=== PATIENT | male | born 1945 | race African-American/Black ===

== ENCOUNTER 2017-04-01 01:35 | Inpatient (IN) | payer OTHER, MEDICARE ==
[2017-04-01] MEDS ORDERED: ZOFRAN IV ONE (02:40)
[2017-04-01] MEDS ORDERED: SUBLIMAZE IV ONE (02:40)
[2017-04-01] MEDS ORDERED: NACL 0.9% 500 ML 500 ML IV ONE (02:42)
--- NOTE | 2017-04-01 02:42 | Emergency Department Report ---
ED General Adult HPI - General Chief complaint: Dizziness Stated complaint: SYNCOPE Time Seen by Provider: 04/01/17 02:27 Source: patient, family, EMS (ems notes not available at time of chart dictation), RN notes reviewed, old records reviewed Mode of arrival: Stretcher Limitations: Language Barrier - History of Present Illness Initial comments: This is a 71-year-old male who is previously known to this provider, patient lives in [place], and typically splits his medical care [facility] in [place], and [facility]. Patient declined a electric solderer formally, and requested that his family translate for him. 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 Also has a history of hypertension. Abdominal surgery was a laparoscopic diagnostic try segmentectomy, hepatectomy, hepaticojejunostomy, portal lymph node dissection, this was done in August. Patient also on chemotherapy, he does not know what agents he is taking, and his family does not know what agents he is taking as well. Presents to the ER with EMS after complaint of syncope. Family reports that patient has been in town since Wednesday, has been weak, having nausea and vomiting , and not defecating. Patient also complaining of left-sided flank pain and abdominal pain. The pain is achy and sharp, increases with palpation, decreases with rest. The patient denies chest pain. The patient complains of shortness of breath. The shortness of breath has been present for the past 4 hours. Patient denies hematemesis, bright red blood per rectum, extremity weakness, numbness. Patient reports "passing out" a few times as per his family's report. -: Gradual Location: abdomen Quality: aching Consistency: intermittent Improves with: rest Worsens with: movement Associated Symptoms: loss of appetite, malaise, nausea/vomiting, shortness of breath, syncope, weakness. denies: confusion, chest pain, cough, diaphoresis, fever/chills - Related Data Previous Rx's Medication Instructions Recorded Last Taken Type oxyCODONE /ACETAMINOPHEN [Percocet 1 tab PO Q4HR #14 tab 04/02/17 Unknown Rx 5/325] Allergies Allergy/AdvReac Type Severity Reaction Status Date / Time No Known Allergies Allergy Verified 04/01/17 05:39 ED Review of Systems ROS: Stated complaint: SYNCOPE Other details as noted in HPI Constitutional: malaise, weakness. denies: fever ENT: denies: epistaxis Respiratory: shortness of breath Cardiovascular: syncope Gastrointestinal: abdominal pain Genitourinary: as per HPI Musculoskeletal: back pain Neurological: weakness Psychiatric: as per HPI ED Past Medical Hx - Past Medical History Previous Medical History?: Yes Hx of Cancer: Yes (Liver) - Surgical History Past Surgical History?: Yes Additional Surgical History: tumor removed 08/2016 - Social History Smoking Status: Never Smoker Substance Use Type: None - Medications Home Medications: Home Medications Medication Instructions Recorded Confirmed Last Taken Type oxyCODONE /ACETAMINOPHEN [Percocet 1 tab PO Q4HR #14 tab 04/02/17 Unknown Rx ] ED Physical Exam - General Limitations: Language Barrier General appearance: alert, in no apparent distress - Head Head exam: Present: atraumatic, normocephalic - Eye Eye exam: Present: normal appearance, PERRL, EOMI, other. Absent: nystagmus - ENT ENT exam: Present: normal exam (visual acuity intact to finger counting, color perception, reading at a close distance), normal orophraynx, mucous membranes moist, normal external ear exam - Neck Neck exam: Present: normal inspection - Respiratory Respiratory exam: Present: normal lung sounds bilaterally. Absent: respiratory distress, wheezes, rales, rhonchi, stridor, prolonged expiratory - Cardiovascular Cardiovascular Exam: Present: regular rate, normal rhythm, normal heart sounds. Absent: systolic murmur, diastolic murmur, rubs, gallop - GI/Abdominal GI/Abdominal exam: Present: soft, tenderness, normal bowel sounds. Absent: distended, guarding, rebound, rigid, pulsatile mass - Rectal Rectal exam: Present: deferred - Extremities Exam Extremities exam: Present: normal inspection, full ROM, normal capillary refill. Absent: pedal edema, joint swelling, calf tenderness - Back Exam Back exam: Present: normal inspection, full ROM. Absent: tenderness, CVA tenderness (R), paraspinal tenderness, vertebral tenderness - Neurological Exam Neurological exam: Present: alert, CN II-XII intact, other (Extraocular movements intact. Tongue midline. No facial droop. Facial sensation intact to light touch in the V1, V2, V3 distribution bilaterally. 5 and 5 strength in 4 extremities.. Sensation is intact to light touch in 4 extremities.). Absent : motor sensory deficit - Psychiatric Psychiatric exam: Present: normal affect, normal mood - Skin Skin exam: Present: warm, dry, intact, normal color. Absent: rash ED Course Vital Signs 04/01/17 04/01/17 04/01/17 02:20 05:26 06:55 Temperature 97.8 F Pulse Rate 70 Respiratory 16 16 Rate Blood Pressure 101/50 Blood Pressure [Right] O2 Sat by Pulse 99 99 Oximetry 04/01/17 04/01/17 04/01/17 08:30 10:30 11:09 Temperature 98.7 F 99.6 F Pulse Rate 92 H 84 Respiratory 18 16 18 Rate Blood Pressure 99/65 Blood Pressure 102/60 [Right] O2 Sat by Pulse 99 98 Oximetry - Reevaluation(s) Reevaluation #1: 04/01/17 05:[address] scan of the brain negative. CT scan of the chest demonstrates no pulmonary embolus. Pneumonia is suggested. CT scan of the abdomen and pelvis is pending at this time. Blood cultures ordered, ceftriaxone ordered. Case presented to Hospital physician, Dr. Muñiz; she except the patient to the medical service. Reevaluation #2: 04/01/17 06:01 Dr Sandoval to follow up on ct a/p ED Medical Decision Making - Lab Data Result diagrams: 04/01/17 03:08 04/01/17 03:08 Vital Signs 04/01/17 02:20 Temperature 97.8 F Pulse Rate 70 Blood Pressure 101/50 O2 Sat by Pulse 99 Oximetry Lab Results 04/01/17 04/01/17 04/01/17 Range/Units 03:08 03:08 03:08 WBC 12.0 H (4.5-11.0) K/mm3 RBC 4.04 (3.65-5.03) M/mm3 Hgb 9.3 L (11.8-15.2) gm/dl Hct 29.0 L (35.5-45.6) % MCV 72 L (84-94) fl MCH 23 L (28-32) pg MCHC 32 (32-34) % RDW 15.0 (13.2-15.2) % Plt Count 245 (140-440) K/mm3 Lymph % (Auto) 6.0 L (13.4-35.0) % [place] % (Auto) 5.0 (0.0-7.3) % Eos % (Auto) 2.3 (0.0-4.3) % Baso % (Auto) 0.1 (0.0-1.8) % Lymph # 0.7 L (1.2-5.4) K/mm3 [place] # 0.6 (0.0-0.8) K/mm3 Eos # 0.3 (0.0-0.4) K/mm3 Baso # 0.0 (0.0-0.1) K/mm3 Seg Neutrophils % 86.6 H (40.0-70.0) % Seg Neutrophils # 10.4 H (1.8-7.7) K/mm3 PT 15.3 H (12.2-14.9) Sec. INR 1.15 H (0.87-1.13) APTT 30.1 (24.2-36.6) Sec. Sodium 136 L (137-145) mmol/L Potassium 4.4 (3.6-5.0) mmol/L Chloride 98.9 (98-107) mmol/L Carbon Dioxide 25 (22-30) mmol/L Anion Gap 17 mmol/L BUN 16 (9-20) mg/dL Creatinine 0.8 (0.8-1.5) mg/dL Estimated GFR > 60 ml/min BUN/Creatinine Ratio 20 % Glucose 166 H (75-100) mg/dL Lactic Acid (0.7-2.0) mmol/L Calcium 8.0 L (8.4-10.2) mg/dL Total Bilirubin 0.50 (0.1-1.2) mg/dL AST 26 (5-40) units/L ALT 14 (7-56) units/L Alkaline Phosphatase 73 (35-129) units/L Ammonia (25-60) umol/L Troponin T < 0.010 (0.00-0.029) ng/mL Total Protein 6.1 L (6.3-8.2) g/dL Albumin 3.1 L (3.9-5) g/dL Albumin/Globulin Ratio 1.0 % Lipase (13-60) units/L 12/28/17 12/28/17 12/28/17 Range/Units 03:08 03:08 03:08 WBC (4.5-11.0) K/mm3 RBC (3.65-5.03) M/mm3 Hgb (11.8-15.2) gm/dl Hct (35.5-45.6) % MCV (84-94) fl MCH (28-32) pg MCHC (32-34) % RDW (13.2-15.2) % Plt Count (140-440) K/mm3 Lymph % (Auto) (13.4-35.0) % [place] % (Auto) (0.0-7.3) % Eos % (Auto) (0.0-4.3) % Baso % (Auto) (0.0-1.8) % Lymph # (1.2-5.4) K/mm3 [place] # (0.0-0.8) K/mm3 Eos # (0.0-0.4) K/mm3 Baso # (0.0-0.1) K/mm3 Seg Neutrophils % (40.0-70.0) % Seg Neutrophils # (1.8-7.7) K/mm3 PT (12.2-14.9) Sec. INR (0.87-1.13) APTT (24.2-36.6) Sec. Sodium (137-145) mmol/L Potassium (3.6-5.0) mmol/L Chloride (98-107) mmol/L Carbon Dioxide (22-30) mmol/L Anion Gap mmol/L BUN (9-20) mg/dL Creatinine (0.8-1.5) mg/dL Estimated GFR ml/min BUN/Creatinine Ratio % Glucose (75-100) mg/dL Lactic Acid 2.80 H* (0.7-2.0) mmol/L Calcium (8.4-10.2) mg/dL Total Bilirubin (0.1-1.2) mg/dL AST (5-40) units/L ALT (7-56) units/L Alkaline Phosphatase (35-129) units/L Ammonia 25.0 (25-60) umol/L Troponin T (0.00-0.029) ng/mL Total Protein (6.3-8.2) g/dL Albumin (3.9-5) g/dL Albumin/Globulin Ratio % Lipase 11 L (13-60) units/L - EKG Data -: EKG Interpreted by Me EKG shows normal: sinus rhythm Rate: normal - EKG Data When compared to previous EKG there are: previous EKG unavailable 04/01/17 04:25 Normal sinus, 77 bpm, normal axis, normal intervals, not morphologically consistent with ST elevation myocardial infarction - Radiology Data Radiology results: pending, report reviewed, image reviewed CT scan of the brain: Negative for acute disease, interpreted by radiology - Medical Decision Making Differential diagnosis, including but not limited to: Vagal event, orthostasis, dehydration, bowel obstruction, pulmonary embolus, intracranial hemorrhage, worsening metastatic disease, constipation, enteritis, urinary tract infection Assessment and plan: 71-year-old male visiting from out of town, history of biliary malignancy, with extensive and complex surgical intervention performed earlier on this year, with a complaint of weakness, left-sided abdominal pain, nausea or vomiting, not defecating, syncope multiple times, and shortness of breath. Patient is afebrile with reassuring vital signs. His neurologic examination is nonfocal. During my initial assessment he appears quite comfortable with the exception of minimal left-sided abdominal tenderness. He follows commands, and there is no midline cervical spine tenderness. CT scan of the brain is obtained, along with CT scan of the chest, abdomen, pelvis. Some of his medical records have been reviewed by myself. We will await interpretation of his CT scan findings. Critical care attestation.: If time is entered above; I have spent that time in minutes in the direct care of this critically ill patient, excluding procedure time. ED Disposition Clinical Impression: Syncope, Hx of malignant neoplasm of bile duct Disposition: OP ADMIT IP TO THIS HOSP Is pt being admited?: Yes Condition: Good
[2017-04-01 03:23] LABS: Basophils % (Auto) 0.1 % (0.0-1.8); Eosinophils # (Auto) 0.3 K/mm3 (0.0-0.4); Eosinophils % (Auto) 2.3 % (0.0-4.3); Hemoglobin 9.3 gm/dl (11.8-15.2); Lymphocytes # (Auto) 0.7 K/mm3 (1.2-5.4); Mean Corpuscular HGB Conc 32 % (32-34); Mean Corpuscular Volume 72 fl (84-94); Monocytes # (Auto) 0.6 K/mm3 (0.0-0.8); Platelet Count 245 K/mm3 (140-440); Red Blood Count 4.04 M/mm3 (3.65-5.03)
[2017-04-01 03:31] LABS: Mean Corpuscular Hemoglobin 23 pg (28-32)
[2017-04-01 03:33] LABS: INR 1.15 (0.87-1.13)
[2017-04-01 03:34] LABS: Partial Thromboplastin Time 30.1 Sec. (24.2-36.6)
[2017-04-01 03:46] LABS: Alanine Aminotransferase 14 units/L (7-56); Albumin 3.1 g/dL (3.9-5); BUN/Creatinine Ratio 20; Blood Urea Nitrogen 16 mg/dL (9-20); Hemolysis Index 3
--- NOTE | 2017-04-01 04:48 | Cat Scan Report ---
FINAL REPORT EXAM: CT HEAD/BRAIN W/O CON HISTORY: History of liver cancer. Syncope and weakness. TECHNIQUE: Unenhanced axial CT images of the brain were obtained. No prior studies are available for comparison. FINDINGS: There is mild diffuse generalized volume loss, appropriate for patient's age. Incidental note is made of a small cavum septum pellucidum (developmental variant). There are mild patchy areas of low-attenuation in the periventricular and subcortical white matter, nonspecific but most likely mild chronic small vessel ischemic disease. The gramajo-white differentiation is maintained. There is no extra-axial fluid collection, mass, mass effect, midline shift, hydrocephalus, or acute intracranial hemorrhage. The visualized paranasal sinuses and mastoid air cells are clear. There is no skull fracture or other osseous abnormality. The visualized orbits and globes are grossly unremarkable. Note that MRI or CT with and without contrast is superior for the evaluation of metastatic disease, and may be warranted for further evaluation. IMPRESSION: 1. No acute intracranial abnormality. 2. Probable mild chronic small vessel ischemic disease.
[2017-04-01] MEDS ORDERED: SUBLIMAZE ONE (05:13)
[2017-04-01] MEDS ORDERED: NACL 0.9% 500 ML 500 ML ONE (05:14)
[2017-04-01] MEDS ORDERED: ZOFRAN ONE (05:16)
--- NOTE | 2017-04-01 05:46 | Cat Scan Report ---
FINAL REPORT EXAM: CT ANGIO CHEST HISTORY: History of liver cancer, with syncope and weakness. Pain when taking in a breath. TECHNIQUE: CT angiogram of the chest was performed, with axial images obtained after the intravenous administration of contrast. Sagittal and coronal reformatted and [address]-MIP reformatted images were also obtained. No prior studies are available for comparison. FINDINGS: The heart is normal in size. The thoracic aorta is normal in caliber, without aneurysm or dissection. No filling defect is seen in the central or proximal segmental pulmonary arteries to suggest pulmonary embolus. There is no pathologic mediastinal or hilar lymphadenopathy. Examination of the lung parenchyma demonstrates minimal biapical pleural scarring. A 1.2 cm rounded subpleural soft tissue nodule at the medial right upper lobe, which abuts the lower right tracheal wall, and appears to contain central 3-4 mm focus of calcification versus enhancement. The presence of calcification would indicate pulmonary granuloma or calcified lymph node. There are multiple small peribronchovascular patchy nodular densities scattered throughout the posterior and lateral right lower lobe. These are nonspecific but most likely inflammatory or infectious small airways disease. There are mild dependent changes at the posterior left lower lobe. There is platelike scarring or atelectasis in the lingula. There is no pleural or pericardial effusion. The trachea and visualized proximal airways are patent. The patient is status post right hepatectomy. There is mild diffuse pneumobilia in the left hepatic lobe. There is partial visualization of several cysts in the right renal upper pole. There is moderate fluid seen within the gastric lumen, with globular dependent soft tissue/debris posteriorly. Mild spondylotic changes are seen in the spine. IMPRESSION: 1. No pulmonary embolism seen in the central or proximal segmental pulmonary arteries. 2. Multiple small peribronchovascular patchy nodular densities throughout the right lower lobe, nonspecific but most likely inflammatory or infectious small airways disease. 3. 1.2 cm rounded subpleural soft tissue nodule in the medial right upper lobe, with 3-4 mm central calcification versus enhancement. Given these multiple pulmonary findings, follow-up unenhanced CT in 2-3 months is recommended for further evaluation. 4. Status post right hepatectomy. Mild diffuse pneumobilia in the remnant left hepatic lobe.
[2017-04-01] MEDS ORDERED: ROCEPHIN/NS 1 GM/50 ML 1 GM/50 ML BAG IV ONE (05:49)
[2017-04-01] MEDS ORDERED: cefTRIAXone 1 GM in NACL 0.9% 20 ML IV ONE (06:00)
[2017-04-01 06:14] LABS: Bilirubin,Urine NEG (Negative); Blood,Urine NEG (Negative); Color,Urine Yellow (Yellow); Mucus,Urine FEW /HPF; Nitrite,Urine NEG (Negative); Protein,Urine <15 mg/dL mg/dL (Negative); Urobilinogen,Urine < 2.0 mg/dL (<2.0)
--- NOTE | 2017-04-01 06:26 | Cat Scan Report ---
FINAL REPORT EXAM: CT ABDOMEN PELVIS W CONTRAST. HISTORY: Liver cancer, with syncope and weakness. Abdominal pain, patient status post chemo 2 wks ago. Hurts lower lungs to take a breath. TECHNIQUE: Axial CT images of the abdomen and pelvis were obtained, following the administration of intravenous contrast. Delayed axial images and coronal and sagittal reformatted images were also obtained. No prior studies are available for comparison. FINDINGS: The patient is status post partial right hepatectomy, with multiple surgical clips and sutures along the remnant right lateral margin. There is spiculated soft tissue adjacent to the surgical sutures, which may represent postsurgical change, though residual or recurrent tumor is not excluded. Comparison with prior examinations is recommended. There is mild pneumobilia in the remnant liver. The patient is status post cholecystectomy. The pancreas, spleen, and adrenal glands are unremarkable. A 3.4 cm cyst is seen at the left lower renal pole, with thin internal septations. Additional bilateral renal cysts are noted. There is no urinary tract obstruction. Evaluation of the bowel is limited due to lack of oral contrast. The stomach is moderately fluid-filled, with globular dependent soft tissue, likely debris. There is moderate abnormal wall thickening involving the gastric pylorus and duodenum, in keeping with moderate duodenitis. A 2.0 cm pocket of air is seen along the right lateral aspect of the duodenal wall, seen on both initial and delayed images, which raises possibility of underlying ulcer. Upper endoscopy is suggested for further evaluation. There are surgical sutures in right anterior abdominal small bowel loops, in keeping with enteric-enteric anastomosis. Correlation with surgical history is recommended. There is no intestinal obstruction or free air. There is mild residual stool in the colon. Of note, the appendix is normal. The abdominal aorta is normal in caliber, mildly calcified. There is no pathologic abdominal or pelvic lymphadenopathy. A small pocket of fluid is seen adjacent to the tail of the pancreas, probably ascitic fluid. There is additional mild pelvic ascites. The prostate gland is normal in size, and heterogeneous appearance with 1.3 cm rounded slightly enhancing nodule at its right paramedian anterior aspect. The urinary bladder is unremarkable. [id number] spondylotic changes are seen in the spine. Note that dedicated CT exam of the chest was also performed, and please refer to that separate report for additional details. IMPRESSION: 1. Status post partial right hepatectomy. Nonspecific spiculated soft tissue adjacent to the surgical sutures along the remnant right hepatic margin, which may represent postsurgical changes, though underlying residual or recurrent tumor is not excluded. Direct comparison with prior examinations is recommended to determine stability. 2. Mild pneumobilia in the remnant liver. 3. Moderate abnormal wall thickening of the gastric pylorus and duodenum, indicative of moderate duodenitis. Persistent 2.0 cm pocket of air seen along the right lateral aspect of the duodenal wall, which may represent underlying ulcer. Upper endoscopy is suggested for further evaluation. 4. Small pocket of fluid adjacent to the tail of the pancreas, likely ascitic fluid. Additional mild pelvic ascites. 5. Bilateral renal cysts, including minimally complex 3.4 cm cyst in the left lower renal pole, with thin internal septations. Continued imaging surveillance is recommended. 6. No intestinal obstruction or free air. 7. Heterogeneous prostate gland, with nonspecific 1.3 cm rounded enhancing nodule in its right paramedian anterior aspect.
[2017-04-01] MEDS ORDERED: DULCOLAX PR PRN (08:01)
[2017-04-01] MEDS ORDERED: MILK OF MAGNESIA PO PRN (08:01)
[2017-04-01] MEDS ORDERED: TYLENOL PO PRN (08:01)
[2017-04-01] MEDS ORDERED: ZOFRAN IV PRN (08:01)
[2017-04-01] MEDS: MORPHINE IV PRN ×3 (08:30→20:55)
[2017-04-01] MEDS: ZITHROMAX 500 MG in NACL 0.9% 250ML 250 ML IV SCH (09:27)
[2017-04-01] MEDS: NACL 0.9% 1000 ML 1,000 ML IV SCH (09:27)
[2017-04-01] MEDS ORDERED: ROCEPHIN/NS 2 GM/100 ML 2 GM/100 ML BAG IV SCH (10:00)
[2017-04-01] MEDS: LOVENOX SUB-Q SCH (10:12)
--- NOTE | 2017-04-01 15:58 | History and Physical Report ---
<EDVIN MORRIS - Last Filed: 04/01/17 15:54> History of Present Illness Date of examination: 04/01/17 Date of admission: 04/01/17 08:01 Chief complaint: Dizziness History of present illness: This is a 71-year-old male who is previously known to this provider, patient lives in [place], and typically splits his medical care [facility] in [place], and [facility]. 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 Also has a history of hypertension. Abdominal surgery was a laparoscopic diagnostic try segmentectomy, hepatectomy, hepaticojejunostomy, portal lymph node dissection, this was done in August. Patient also on chemotherapy, he does not know what agents he is taking, and his family does not know what agents he is taking as well. Presents to the ER with EMS after complaint of syncope. Family reports that patient has been in town since Wednesday, has been weak, having nausea and vomiting , and not defecating. Patient also complaining of left-sided flank pain and abdominal pain. The pain is achy and sharp, increases with palpation, decreases with rest. The patient denies chest pain. The patient complains of shortness of breath. The shortness of breath has been present for the past 4 hours. Patient denies hematemesis, bright red blood per rectum, extremity weakness, numbness. Past History Past Medical History: cancer (liver) Past Surgical History: Other (hepatectomy with tumor removed) Social history: smoking (never) Medications and Allergies Allergies Allergy/AdvReac Type Severity Reaction Status Date / Time No Known Allergies Allergy Verified 04/01/17 05:39 Home Medications Medication Instructions Recorded Confirmed Last Taken Type oxyCODONE /ACETAMINOPHEN [Percocet 1 tab PO Q4HR #14 tab 04/02/17 Unknown Rx 5/325] Active Meds: Active Medications Acetaminophen (Tylenol) 650 mg PO Q4H PRN PRN Reason: Pain MILD(1-3)/Fever >100.5/FOLEY Bisacodyl (Dulcolax) 10 mg SD QDAY PRN PRN Reason: Constipation unrelieved by MOM Enoxaparin Sodium (Lovenox) 40 mg SUB-Q QDAY DAYSI Last Admin: 04/01/17 10:12 Dose: Not Given Sodium Chloride (Nacl 0.9% 1000 Ml) 1,000 mls @ 75 mls/hr IV DIRECT DAYSI Last Admin: 04/01/17 09:27 Dose: 75 mls/hr Azithromycin 500 mg/ Sodium (Chloride) 250 mls @ 250 mls/hr IV Q24HR [facility] Last Admin: 04/01/17 09:27 Dose: 250 mls/hr Ceftriaxone Sodium 2 gm/ (Sodium Chloride) 20 mls @ 20 mls/10 min IV Q24H [facility] Magnesium Hydroxide (Milk Of Magnesia) 30 ml PO Q4H PRN PRN Reason: Constipation Last Admin: 04/01/17 08:28 Dose: 30 ml Morphine Sulfate (Morphine) 2 mg IV Q4H PRN PRN Reason: Pain, Moderate (4-6) Last Admin: 04/01/17 08:30 Dose: 2 mg Ondansetron HCl (Zofran) 4 mg IV Q8H PRN PRN Reason: N/V unrelieved by Reglan Last Admin: 04/01/17 08:29 Dose: 4 mg Review of Systems Constitutional: weakness, malaise Ears, nose, mouth and throat: no tinnitis, no epistaxis Cardiovascular: shortness of breath Respiratory: other (syncope) Gastrointestinal: abdominal pain Genitourinary Male: no hematuria, no flank pain, no urinary frequency Rectal: no incontinence, no bleeding Musculoskeletal: other (L flank), no neck pain, no arm numbness/tingling, no shooting leg pain Integumentary: no pruritis, no sores, no jaundice Neurological: weakness, syncope, no paralysis, no numbness, no tremors Psychiatric: no memory loss, no sleep disturbances, no suicidal ideation Endocrine: no polyphagia, no polydipsia, no polyuria Hematologic/Lymphatic: no easy bruising, no easy bleeding Allergic/Immunologic: no urticaria, no allergic rhinitis Exam - Constitutional Vitals: Temp Pulse Resp BP Pulse Ox 99.6 F 84 18 99/65 98 04/01/17 11:09 04/01/17 11:09 04/01/17 11:09 04/01/17 11:09 04/01/17 11:09 General appearance: Present: no acute distress, other (Language barrier) - EENT Eyes: Present: PERRL ENT: hearing intact, clear oral mucosa - Neck Neck: Present: supple, normal ROM - Respiratory Respiratory effort: normal Respiratory: bilateral: CTA - Cardiovascular Heart Sounds: Present: S1 & S2. Absent: rub, click - Extremities Extremities: pulses symmetrical Extremity abnormal: edema (trace) Peripheral Pulses: within normal limits - Abdominal General gastrointestinal: Present: tender Localized gastrointestinal: tender: LUQ - Rectal Rectal Exam: deferred - Integumentary Integumentary: Present: clear, warm, dry - Musculoskeletal Musculoskeletal: gait normal, strength equal bilaterally - Psychiatric Psychiatric: appropriate mood/affect, intact judgment & insight - Neurologic Neurologic: CNII-XII intact, moves all extremities - Allied Health Allied health notes reviewed: nursing Results - Labs CBC & Chem 7: 04/01/17 03:08 04/01/17 03:08 Labs: Laboratory Last Values WBC 12.0 K/mm3 (4.5-11.0) H 04/01/17 03:08 RBC 4.04 M/mm3 (3.65-5.03) 04/01/17 03:08 Hgb 9.3 gm/dl (11.8-15.2) L 04/01/17 03:08 Hct 29.0 % (35.5-45.6) L 04/01/17 03:08 MCV 72 fl (84-94) L 04/01/17 03:08 MCH 23 pg (28-32) L 04/01/17 03:08 MCHC 32 % (32-34) 04/01/17 03:08 RDW 15.0 % (13.2-15.2) 04/01/17 03:08 Plt Count 245 K/mm3 (140-440) 04/01/17 03:08 Lymph % (Auto) 6.0 % (13.4-35.0) L 04/01/17 03:08 Glenn % (Auto) 5.0 % (0.0-7.3) 04/01/17 03:08 Eos % (Auto) 2.3 % (0.0-4.3) 04/01/17 03:08 Baso % (Auto) 0.1 % (0.0-1.8) 04/01/17 03:08 Lymph # 0.7 K/mm3 (1.2-5.4) L 04/01/17 03:08 Glenn # 0.6 K/mm3 (0.0-0.8) 04/01/17 03:08 Eos # 0.3 K/mm3 (0.0-0.4) 04/01/17 03:08 Baso # 0.0 K/mm3 (0.0-0.1) 04/01/17 03:08 Seg Neutrophils % 86.6 % (40.0-70.0) H 04/01/17 03:08 Seg Neutrophils # 10.4 K/mm3 (1.8-7.7) H 04/01/17 03:08 PT 15.3 Sec. (12.2-14.9) H 04/01/17 03:08 INR 1.15 (0.87-1.13) H 04/01/17 03:08 APTT 30.1 Sec. (24.2-36.6) 04/01/17 03:08 POC ABG pH 7.425 (7.35-7.45) 04/01/17 11:15 POC ABG pCO2 35.0 (35-45) 04/01/17 11:15 POC ABG pO2 79 (80-105) L 04/01/17 11:15 POC ABG HCO3 22.9 04/01/17 11:15 POC ABG Total CO2 24 04/01/17 11:15 POC ABG O2 Sat 96 04/01/17 11:15 POC ABG Base Excess -1 04/01/17 11:15 FiO2 21 % 04/01/17 11:15 Sodium 136 mmol/L (137-145) L 04/01/17 03:08 Potassium 4.4 mmol/L (3.6-5.0) 04/01/17 03:08 Chloride 98.9 mmol/L (98-107) 04/01/17 03:08 Carbon Dioxide 25 mmol/L (22-30) 04/01/17 03:08 Anion Gap 17 mmol/L 04/01/17 03:08 BUN 16 mg/dL (9-20) 04/01/17 03:08 Creatinine 0.8 mg/dL (0.8-1.5) 04/01/17 03:08 Estimated GFR > 60 ml/min 04/01/17 03:08 BUN/Creatinine Ratio 20 % 04/01/17 03:08 Glucose 166 mg/dL (75-100) H 04/01/17 03:08 Lactic Acid 1.10 mmol/L (0.7-2.0) 04/01/17 09:26 Calcium 8.0 mg/dL (8.4-10.2) L 04/01/17 03:08 Total Bilirubin 0.50 mg/dL (0.1-1.2) 04/01/17 03:08 AST 26 units/L (5-40) 04/01/17 03:08 ALT 14 units/L (7-56) 04/01/17 03:08 Alkaline Phosphatase 73 units/L (35-129) 04/01/17 03:08 Ammonia 25.0 umol/L (25-60) 04/01/17 03:08 Troponin T < 0.010 ng/mL (0.00-0.029) 04/01/17 03:08 Total Protein 6.1 g/dL (6.3-8.2) L 04/01/17 03:08 Albumin 3.1 g/dL (3.9-5) L 04/01/17 03:08 Albumin/Globulin Ratio 1.0 % 04/01/17 03:08 Lipase 11 units/L (13-60) L 04/01/17 03:08 Urine Color Yellow (Yellow) 04/01/17 05:49 Urine Turbidity Clear (Clear) 04/01/17 05:49 Urine pH 6.0 (5.0-7.0) 04/01/17 05:49 Ur Specific [place] 1.054 (1.003-1.030) H 04/01/17 05:49 Urine Protein <15 mg/dl mg/dL (Negative) 04/01/17 05:49 Urine Glucose (UA) Neg mg/dL (Negative) 04/01/17 05:49 Urine Ketones Neg mg/dL (Negative) 04/01/17 05:49 Urine Blood Neg (Negative) 04/01/17 05:49 Urine Nitrite Neg (Negative) 04/01/17 05:49 Urine Bilirubin Neg (Negative) 04/01/17 05:49 Urine Urobilinogen < 2.0 mg/dL (<2.0) 04/01/17 05:49 Ur Leukocyte Esterase Neg (Negative) 04/01/17 05:49 Urine WBC (Auto) 1.0 /HPF (0.0-6.0) 04/01/17 05:49 Urine RBC (Auto) 3.0 /HPF (0.0-6.0) 04/01/17 05:49 U Epithel Cells (Auto) 1.0 /HPF (0-13.0) 04/01/17 05:49 Urine Mucus Few /HPF 04/01/17 05:49 Blood Type B POSITIVE 04/01/17 09:26 Antibody Screen Negative 04/01/17 09:26 Assessment and Plan Advance Directives: Yes VTE prophylaxis?: Chemical - Patient Problems (1) SIRS (systemic inflammatory response syndrome) Status: Acute Plan to address problem: Blood and urine cultures pending, abx started (2) Hx of malignant neoplasm of bile duct Status: Acute Plan to address problem: CT abdomen pending, pt on chemo (3) Syncope Status: Acute Plan to address problem: CDS, ECHO ordered (4) Anemia Status: Acute Plan to address problem: Likely due to chemo, continue to monitor, transfuse if Hgb <7 (5) DVT prophylaxis Status: Acute Plan to address problem: On lovenox <LOUANN MONTGOMERY R - Last Filed: 04/19/17 10:15> History of Present Illness Date of admission: 04/01/17 08:01 History of present illness: I saw and evaluated the patient. I agree with the findings and the plan of care as documented in the Nurse Practitioner's~note, with the following corrections and additions. Exam - Constitutional Vitals: Temp Pulse Resp BP Pulse Ox 98.2 F 77 16 132/64 100 04/02/17 14:51 04/02/17 14:51 04/02/17 14:51 04/02/17 14:51 04/02/17 18:00 Results - Labs CBC & Chem 7: 04/01/17 03:08 04/01/17 03:08 Labs: Laboratory Last Values WBC 12.0 K/mm3 (4.5-11.0) H 04/01/17 03:08 RBC 4.04 M/mm3 (3.65-5.03) 04/01/17 03:08 Hgb 9.3 gm/dl (11.8-15.2) L 04/01/17 03:08 Hct 29.0 % (35.5-45.6) L 04/01/17 03:08 MCV 72 fl (84-94) L 04/01/17 03:08 MCH 23 pg (28-32) L 04/01/17 03:08 MCHC 32 % (32-34) 04/01/17 03:08 RDW 15.0 % (13.2-15.2) 04/01/17 03:08 Plt Count 245 K/mm3 (140-440) 04/01/17 03:08 Lymph % (Auto) 6.0 % (13.4-35.0) L 04/01/17 03:08 Glenn % (Auto) 5.0 % (0.0-7.3) 04/01/17 03:08 Eos % (Auto) 2.3 % (0.0-4.3) 04/01/17 03:08 Baso % (Auto) 0.1 % (0.0-1.8) 04/01/17 03:08 Lymph # 0.7 K/mm3 (1.2-5.4) L 04/01/17 03:08 Glenn # 0.6 K/mm3 (0.0-0.8) 04/01/17 03:08 Eos # 0.3 K/mm3 (0.0-0.4) 04/01/17 03:08 Baso # 0.0 K/mm3 (0.0-0.1) 04/01/17 03:08 Seg Neutrophils % 86.6 % (40.0-70.0) H 04/01/17 03:08 Seg Neutrophils # 10.4 K/mm3 (1.8-7.7) H 04/01/17 03:08 PT 15.3 Sec. (12.2-14.9) H 04/01/17 03:08 INR 1.15 (0.87-1.13) H 04/01/17 03:08 APTT 30.1 Sec. (24.2-36.6) 04/01/17 03:08 POC ABG pH 7.425 (7.35-7.45) 04/01/17 11:15 POC ABG pCO2 35.0 (35-45) 04/01/17 11:15 POC ABG pO2 79 (80-105) L 04/01/17 11:15 POC ABG HCO3 22.9 04/01/17 11:15 POC ABG Total CO2 24 04/01/17 11:15 POC ABG O2 Sat 96 04/01/17 11:15 POC ABG Base Excess -1 04/01/17 11:15 FiO2 21 % 04/01/17 11:15 Sodium 136 mmol/L (137-145) L 04/01/17 03:08 Potassium 4.4 mmol/L (3.6-5.0) 04/01/17 03:08 Chloride 98.9 mmol/L (98-107) 04/01/17 03:08 Carbon Dioxide 25 mmol/L (22-30) 04/01/17 03:08 Anion Gap 17 mmol/L 04/01/17 03:08 BUN 16 mg/dL (9-20) 04/01/17 03:08 Creatinine 0.8 mg/dL (0.8-1.5) 04/01/17 03:08 Estimated GFR > 60 ml/min 04/01/17 03:08 BUN/Creatinine Ratio 20 % 04/01/17 03:08 Glucose 166 mg/dL (75-100) H 04/01/17 03:08 Lactic Acid 1.10 mmol/L (0.7-2.0) 04/01/17 09:26 Calcium 8.0 mg/dL (8.4-10.2) L 04/01/17 03:08 Total Bilirubin 0.50 mg/dL (0.1-1.2) 04/01/17 03:08 AST 26 units/L (5-40) 04/01/17 03:08 ALT 14 units/L (7-56) 04/01/17 03:08 Alkaline Phosphatase 73 units/L (35-129) 04/01/17 03:08 Ammonia 25.0 umol/L (25-60) 04/01/17 03:08 Troponin T < 0.010 ng/mL (0.00-0.029) 04/01/17 03:08 Total Protein 6.1 g/dL (6.3-8.2) L 04/01/17 03:08 Albumin 3.1 g/dL (3.9-5) L 04/01/17 03:08 Albumin/Globulin Ratio 1.0 % 04/01/17 03:08 Lipase 11 units/L (13-60) L 04/01/17 03:08 Urine Color Yellow (Yellow) 04/01/17 05:49 Urine Turbidity Clear (Clear) 04/01/17 05:49 Urine pH 6.0 (5.0-7.0) 04/01/17 05:49 Ur Specific [place] 1.054 (1.003-1.030) H 04/01/17 05:49 Urine Protein <15 mg/dl mg/dL (Negative) 04/01/17 05:49 Urine Glucose (UA) Neg mg/dL (Negative) 04/01/17 05:49 Urine Ketones Neg mg/dL (Negative) 04/01/17 05:49 Urine Blood Neg (Negative) 04/01/17 05:49 Urine Nitrite Neg (Negative) 04/01/17 05:49 Urine Bilirubin Neg (Negative) 04/01/17 05:49 Urine Urobilinogen < 2.0 mg/dL (<2.0) 04/01/17 05:49 Ur Leukocyte Esterase Neg (Negative) 04/01/17 05:49 Urine WBC (Auto) 1.0 /HPF (0.0-6.0) 04/01/17 05:49 Urine RBC (Auto) 3.0 /HPF (0.0-6.0) 04/01/17 05:49 U Epithel Cells (Auto) 1.0 /HPF (0-13.0) 04/01/17 05:49 Urine Mucus Few /HPF 04/01/17 05:49 Blood Type B POSITIVE 04/01/17 09:26 Antibody Screen Negative 04/01/17 09:26
--- NOTE | 2017-04-01 17:42 | Event Note ---
Date: 04/01/17 - full GI consult dictated - pt w/ biliary cancer s/p surgery presented w/ reported abdominal and left flank - pt reports no abdominal pain or other GI symptoms at this time, tolerating po - reports being set up for EGD w/ primary GI and defers at this time - ppi qd, probable muscular left flank pain, per primary team - no need further GI input at this time, will sign off, call if needed
[2017-04-02] MEDS: NACL 0.9% 1000 ML 1,000 ML IV SCH (00:48)
[2017-04-02] MEDS ORDERED: cefTRIAXone 2 GM in NACL 0.9% 20 ML IV SCH (08:00)
[2017-04-02] MEDS: LOVENOX SUB-Q SCH (09:19)
[2017-04-02] MEDS: ZITHROMAX 500 MG in NACL 0.9% 250ML 250 ML IV SCH (09:19)
--- NOTE | 2017-04-02 10:51 | Discharge Summary ---
<EDVIN MORRIS - Last Filed: 04/02/17 14:01> Providers - Providers Date of Admission: 04/01/17 08:01 Date of discharge: 04/02/17 Attending physician: LOUANN MONTGOMERY 04/01/17 08:01 Consult to Physician [CONS] Routine Consulting Provider: HAMLET OVIEDO Reason For Exam: abd pain Place consult to:: Dr. Klein Notified:: Dr. Klein Phone number called:: [phone] Was contact made?: Yes If yes, spoke with:: Esmer Time called:: 14:35 Hospitalization Condition: Good Pertinent studies: CTA revealed bilateral renal cysts, mild pneumobilia in the remnant liver, mild abnormal wall thickening of the gastric pylorus into the duodenum, no intestinal obstruction or free air (see full report for detailed description). Head CT revealed no acute intracranial abnormality, probable mild chronic small vessel ischemic disease. Added duplex revealed <50% bilateral stenosis by Doppler velocities, antegrade vertebral artery flow bilaterally. Chest CTA showed No pulmonary embolism seen in the central proximal pulmonary arteries ( full report for detailed description) echocardiogram revealed EF of 55-60%. X- ray of the ribs revealed no displaced rib fracture. Hospital course: 71 year old man presents to the ER with EMS after complaint of syncope. Family reports that patient has been in town since Wednesday, has been weak, having nausea and vomiting, and not defecating. Patient also complaining of left- sided flank pain and abdominal pain. The pain is achy and sharp, increases with palpation, decreases with rest. The patient denies chest pain. The patient complains of shortness of breath. The shortness of breath has been present for the past 4 hours. Patient denies hematemesis, bright red blood per rectum, extremity weakness, numbness. She was treated with antibiotics, analgesics, IV fluids. Patient received Lovenox for DVT prophylaxis. Discharge diagnoses SIRS History of malignant neoplasm of bile duct Syncope Anemia Musculoskeletal pain DVT prophylaxis Disposition: TO HOME OR SELFCARE Time spent for discharge: 35 minutes - Discharge Diagnoses (1) SIRS (systemic inflammatory response syndrome) Status: Acute (2) Hx of malignant neoplasm of bile duct Status: Acute (3) Syncope Status: Acute (4) Anemia Status: Acute (5) DVT prophylaxis Status: Acute Core Measure Documentation - Palliative Care Palliative Care/ Comfort Measures: Not Applicable - Core Measures Any of the following diagnoses?: none Exam - Constitutional Vitals: Temp Pulse Resp BP Pulse Ox 99.0 F 75 16 143/54 100 04/02/17 07:57 04/02/17 07:57 04/02/17 07:57 04/02/17 07:57 04/02/17 07:57 General appearance: Present: no acute distress, well-nourished - EENT Eyes: Present: PERRL ENT: hearing intact, clear oral mucosa - Neck Neck: Present: supple, normal ROM - Respiratory Respiratory effort: normal Respiratory: bilateral: CTA - Cardiovascular Heart Sounds: Present: S1 & S2. Absent: rub, click - Extremities Extremities: pulses symmetrical, No edema Extremity abnormal: other (L fland pain with palpation) Peripheral Pulses: within normal limits - Abdominal General gastrointestinal: Present: soft, non-tender, non-distended, normal bowel sounds Male genitourinary: Present: deferred - Rectal Rectal Exam: deferred - Integumentary Integumentary: Present: clear, warm, dry - Musculoskeletal Musculoskeletal: gait normal, strength equal bilaterally - Psychiatric Psychiatric: appropriate mood/affect, intact judgment & insight - Neurologic Neurologic: CNII-XII intact, moves all extremities - Allied Health Allied health notes reviewed: nursing Plan Activity: advance as tolerated, fall precautions, other (no strenuous activity until cleared by PCP) Weight Bearing Status: Weight Bear as Tolerated Diet: low fat, low cholesterol, low salt Follow up with: KARYN BRADLEY [Other] - 3-5 Days Prescriptions: oxyCODONE /ACETAMINOPHEN [Percocet 5/325] 1 tab PO Q4HR #14 tab Pending Studies Rib series Xray <LOUANN MONTGOMERY - Last Filed: 04/19/17 10:14> Providers - Providers Date of Admission: 04/01/17 08:01 Attending physician: LOUANN MONTGOMERY 04/01/17 08:01 Consult to Physician [CONS] Routine Consulting Provider: HAMLET OVIEDO Reason For Exam: abd pain Place consult to:: Dr. Klein Notified:: Dr. Klein Phone number called:: [phone] Was contact made?: Yes If yes, spoke with:: Esmer Time called:: 14:35 Hospitalization Hospital course: I saw and evaluated the patient. I agree with the findings and the plan of care as documented in the Nurse Practitioner's~note, with the following corrections and additions. Exam - Constitutional Vitals: Temp Pulse Resp BP Pulse Ox 98.2 F 77 16 132/64 100 04/02/17 14:51 04/02/17 14:51 04/02/17 14:51 04/02/17 14:51 04/02/17 18:00
--- NOTE | 2017-04-02 11:21 | Consultation ---
REFERRING PHYSICIAN: Demar Batres MD INDICATION: Abdominal pain. 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 The patient presented to the Emergency Room after a syncopal episode. The patient reports he has been nauseous and weak. He reports some left flank pain. The patient reportedly has had some abdominal pain, but he reports that is completely resolved. He denies any nausea, vomiting, GERD. Denies any lower GI symptoms including diarrhea, constipation or rectal bleeding. No other specific complaints. 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 MEDICATIONS: See chart. ALLERGIES: No known drug allergies. SOCIAL HISTORY: Denies alcohol, tobacco or drug use. FAMILY HISTORY: Negative for colon cancer. REVIEW OF SYSTEMS: GENERAL: Reports mild weakness. HEENT: No visual complaints or tinnitus. PULMONARY: No Short of breath. No cough. No chest pain. GASTROINTESTINAL: Reports no abdominal pain. MUSCULOSKELETAL: Reports flank pain. All points of 13-point review of systems otherwise negative. PHYSICAL EXAMINATION: VITAL SIGNS: Temperature of 99.5, pulse 97, respirations 18, blood pressure 105/67. GENERAL: Fairly nourished male in no acute distress. HEENT: Pupils equal, round, reactive. PULMONARY: Clear. CARDIOVASCULAR: Regular rhythm. Normal S1, S2. ABDOMEN: Positive bowel sounds, soft. SKIN: No obvious rashes. LABORATORY DATA: Pertinent for white count of 12, hemoglobin and hematocrit of 9.3 and 29.0, platelet count of 245. Chem-7 within normal limits. LFTs within normal limits. CT scan showed signs of previous surgery with the possibility of peptic ulcer disease. ASSESSMENT AND PLAN: The patient is a 71-year-old male with a probable cholangiocarcinoma, status post surgery, now presented with reported presyncopal episode with nausea and abdominal flank pain. The patient at this time is adamant that he has no abdominal pain and only has left flank pain, worse with movement. He denies any epigastric pain and reports that he is eating well with no problems or complaints. I discussed with him the possibility of endoscopy and he says he is supposed to be seeing his regular aerospace engineer over the next couple of weeks to have it scheduled. He would not like to have the procedure at this time. Management is noted below. PLAN: 1. We will review CT scan. 2. PPI daily and Carafate suspension q.i.d. 3. Management of left flank probable musculoskeletal pain per primary team. 4. Given no need for endoscopy or further intervention and no GI complaints at this time, we will sign off, call as needed. JOB# [id number] CAB/NTS
[2017-04-02] MEDS ORDERED: PNEUMOVAX 23 IM ONE (12:00)
[2017-04-02] MEDS ORDERED: Fluarix Quad 2017-2018(36 MOS+ IM ONE (12:00)
--- NOTE | 2017-04-02 15:01 | XRay Report ---
LEFT RIBS, 3 VIEWS: History: pain. Routine views of the rib cage demonstrate normal mineralization with no significant contour abnormalities, fractures or destructive lesions. PA view of the chest demonstrates no underlying cardiopulmonary abnormalities, fluid or pneumothorax. IMPRESSION: No displaced rib fracture is identified
[2017-04-02 15:35] VITALS: BP 132/64
[2017-04-02] MEDS: MORPHINE IV PRN (16:37)
--- NOTE | 2017-04-09 09:14 | Query- Nutrition ---
Stefanie Amanda Medardo Date: 04/09/17 [facility] Director/CDS:___Erwinjeovanny / Paulie Phone#:____[phone] Exercise your independent professional judgment when responding to query. Questions asked do not imply a particular answer is desired or expected. We greatly appreciate your clarification on this issue. Clinical Documentation States: 71 year old male was admitted on 04/01/17 The Discharge summary (Arun) states " 71 year old man presents to the ER with EMS after complaint of syncope. Discharge diagnoses History of malignant neoplasm of bile duct " Clinical Findings Show: Albumin: 3.1 Please select the most appropriate option 3 [] Mild Malnutrition [] Mild - Moderate Malnutrition [] Moderate - Severe Malnutrition [] Severe Malnutrition Serum Albumin 2.8 to 3.4 g/dl or Pre-albumin 5 to 17 mg/dl1,2 Inadequate nutritional intake1,2,3,4 NPO > 5 days Weight loss: 5% in 1 month or 7.5% in 3 months or 10% in 6 months1, 3,4 BMI 16 to 18.4 or Weight <90% of ideal body weight1,2,3,4 Serum Albumin < 2.8 g/ dl1,2 Lymphocytes < 1500/ L2 Inadequate nutritional intake3, high stress e.g. major trauma, sepsis,pancreatitis, lemons etc. Decubitus ulcers1,2, , skin breakdown2, easy hair pluckability2 Weight <80% standard for height2 Triceps skin fold <3 mm2 Mid-arm muscle circumference <15 cm2 Creatinine-height index <60% standard2 [ ] Cachexia [ ] Emaciated w/Malnutrition [ ] Other: [ ] Unable to determine [ ] Comment/Explanation: Present on Admission: [ ] Yes (Y) [ ] Clinically undeterminable (W) [ ] No ( N) Please also document response in your Progress Notes and/or Discharge Summary and indicate if the condition was present on admission. MTDD
--- NOTE | 2017-04-09 09:17 | Query- General ---
Stefanie Amanda____Medardo Date:___04/09/17 Geoffrey/CDS: Laurence / Diasuzanne Phone#:__[phone] Exercise your independent professional judgment when responding to this query. Questions asked do not imply a particular answer is desired or expected. We greatly appreciate your clarification on this issue. Clinical Documentation States: 71 year old male was admitted on 04/01/17 The discharge summary (Arun) states " 71 year old man presents to the ER with EMS after complaint of syncope. Discharge diagnoses SIRS Anemia Syncope " Clinical Findings Show (include reference to source document): Given the above clinical scenario can you please provide an appropriate diagnosis based on your knowledge of the patient: PHYSICIAN RESPONSE: Please clarify the etiology of syncope: _vasovagal Present on Admission: [x ] Yes (Y) [ ] Clinically undeterminable (W) [ ]No(N) Please also document response in your Progress Notes and/or Discharge Summary and indicate if the condition was present on admission. VISHAL
--- NOTE | 2017-04-13 13:06 | Vascular Lab Report ---
CAROTID DUPLEX STUDY: RIGHT PSVEDV CCA PROX:[id number] CCA DIST:[id number] ICA PROX:9525 ICA MID:[id number] ICA DIST:[id number] ECA: 904 VERT: 52 10 LEFT PSVEDV CCA PROX:[id number] CCA DIST:01107 ICA PROX:48513 ICA MID:9536 ICA DIST:9230 ECA: 1078 VERT: 52 16 REASON FOR EXAM: Syncope. COMMENTS ON THE RIGHT: Doppler frequency analysis is consistent with 16 to 49 percent diameter reduction of the internal carotid artery. Minimal amount of plaque is seen. The common carotid artery is patent. The external carotid artery is patent. The vertebral artery has antegrade flow. COMMENTS ON THE LEFT: Doppler frequency analysis is consistent with 16 to 49 percent diameter reduction of the internal carotid artery. Minimal amount of plaque is seen. The common carotid artery is patent. The external carotid artery is patent. The vertebral artery has antegrade flow. 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 Consider repeat carotid artery duplex in 12 months.
== END 2017-04-02 20:20 | disposition home or self-care (01) | DRG 312 ==
LOC: ED 01:35 → 2B-ACE 08:01
PROVIDERS: ADMIT Hospitalist; ATTEND Hospitalist
PROC: 4A033R1 Measurement of Arterial Saturation, Peripheral, Percutaneous Approach (ICD-10-PCS; 2017-04-01)
PROC: 3E0234Z Introduction of Serum, Toxoid and Vaccine into Muscle, Percutaneous Approach (ICD-10-PCS; principal; 2017-04-02)
DX: R55 Syncope and collapse (principal); R65.10 Systemic inflammatory response syndrome (SIRS) of non-infectious origin without acute organ dysfunction; D64.9 Anemia, unspecified; M79.1 Myalgia; N28.1 Cyst of kidney, acquired; I10 Essential (primary) hypertension; F17.200 Nicotine dependence, unspecified, uncomplicated; R10.9 Unspecified abdominal pain; Z85.09 Personal history of malignant neoplasm of other digestive organs; Z85.05 Personal history of malignant neoplasm of liver; Z23 Encounter for immunization
CPT/HCPCS: 36415; 36600; 70450; 71275; 74177; 80053; 81001; 82140; 82803; 83690; 84484; 85025; 85610; 85730; 86850; 86900; 86901; 87040; 87045; 87086; 90686; 90732; 93005; 93010; 93306; 93880; 96365; 96375; 96376; J0456; J0696; J1650; J2270; J2405; J3010; J7030; J7040; J7050; Q9967